=== PATIENT | female | born 1970 | race Caucasian/White ===

== ENCOUNTER 2017-02-17 14:38 | Outpatient (CLI) | payer OTHER ==
--- NOTE | 2017-02-18 17:03 | MRI Report ---
EXAM: RIGHT HIP MRI WITHOUT CONTRAST EXAM DATE: 02/17/2017 04:06 PM. CLINICAL HISTORY: Right hip pain. COMPARISON: None. TECHNIQUE: Multiplanar, multisequence T1-weighted and fluid-sensitive, small [id number] sequences of the hip and large [id number] sequences of the pelvis without contrast. Other: None. FINDINGS: Bones: No fractures or subluxations. No marrow edema or bone lesions. Right Hip: No acetabular retroversion. Femoral head/neck offset is within normal limits. No effusion or loose bodies. The articular cartilage is intact. The labrum is unremarkable on this nonarthrograph ic study. The ligamentum teres is intact. There is a "cortical bump" at the anterior femoral head/nec k contour. Alpha angle is 40 degrees. Lateral center edge angle is 41 degrees. Other Joints: The visualized lumbar spine, sacroiliac joints, symphysis pubis, and contralateral hip are unremarkable. Musculature: No edema or fatty atrophy. The gluteus medius and minimus tendons are normal. The visua lized hamstring tendons are normal. The ischiofemoral space is normal. Pelvic Cavity: The visualized viscera are unremarkable. No lymphadenopathy. No free fluid in the pelv is. Other: The visualized sciatic nerves are unremarkable. No bursitis. The subcutaneous tissues are unre markable. IMPRESSION: 1. No fractures, no erosive or destructive changes. 2. Labrum and capsular structures appear unremarkable. No chondromalacia. There is a "cortical bump" at the anterior femoral head/neck contour. This is sometimes seen in patients with femoral acetabular impingement. [facility] Referring Provider Line: [phone] SITE ID: [id number]
== END 2017-02-17 14:39 | disposition home or self-care (01) ==
LOC: DI 14:38
PROVIDERS: ATTEND Family Medicine
DX: M25.551 Pain in right hip (principal)